=== PATIENT | female | born 1970 | race Caucasian/White ===

== ENCOUNTER 2017-03-08 22:51 | Inpatient (IN) | payer OTHER ==
[~2017-03-08] VITALS: Ht 154.9 cm; Wt 90.7 kg
[~2017-03-08 22:51] MED LIST: ASPIRIN325 PO; GLUCOPHAGE1000 MG PO; GLUCOTROL5 MG PO; LEVEMIR SUBQ; NOVOLOG100 UNIT/1 SUBQ; PRINIVIL5 MG PO; TRICOR145 MG PO
[2017-03-08 22:54] VITALS: BP 126/69
[2017-03-08] MEDS ORDERED: ONGLYZA5 MG PO (23:10)
[2017-03-08] MEDS ORDERED: METFORMIN HCL500 MG PO (23:10)
[2017-03-08] MEDS ORDERED: LOVASTATIN 20 M20 MG PO (23:11)
[2017-03-08] MEDS ORDERED: LIPITOR80 MG PO (23:11)
[2017-03-08] MEDS ORDERED: GABAPENTIN 100100 MG PO (23:11)
[2017-03-08] MEDS ORDERED: LISINOPRIL40 MG PO (23:11)
[2017-03-08] MEDS ORDERED: DIPHENHIST50 MG (23:12)
[2017-03-08] MEDS ORDERED: COMPAZINE10 MG PO (23:12)
[2017-03-08] MEDS ORDERED: FLEXERIL PO (23:12)
[2017-03-08] MEDS ORDERED: CLEOCIN HCL300 MG PO (23:13)
[2017-03-08] MEDS ORDERED: ONDANSETRON HCL4 M2 PO (23:13)
[2017-03-08 23:24] LABS: ABSOLUTE BASOPHILS 0.1 thou/uL (0.0-0.2); ABSOLUTE EOSINOPHILS 0.1 thou/uL (0.0-0.7); ABSOLUTE LYMPHOCYTES 1.8 thou/uL (0.8-5.3); ABSOLUTE MONOCYTES 0.8 thou/uL (0.0-1.2); ABSOLUTE NEUTROPHILS 9.8 thou/uL (1.6-8.1); BASOPHILS 0.6 %; HEMATOCRIT 39.4 % (37.0-47.0); HEMOGLOBIN 12.5 gm/dL (12.0-15.0); LYMPHOCYTES 14.4 %; MCH 26.8 pg (26.0-34.0); MCHC 31.8 g/dL (28.0-37.0); MCV 84.3 fL (80.0-100.0); MONOCYTES 6.3 %; MPV 9.6 fl. (7.2-11.1); NUCLEATED RBCS 0 /100WBC; PLATELET COUNT* 265 thou/uL (150-400); POLYS 77.7 %; RBC 4.67 mil/uL (4.20-5.00); RDW-CV 14.2 % (10.5-14.5); WBC 12.6 thou/uL (4.0-11.0)
[2017-03-08 23:44] LABS: INR 1.1; PROTIME 10.3 Seconds (9.20-11.50)
[2017-03-08 23:52] LABS: ANION GAP 13 mmol/L (7-16); BUN 17 mg/dL (7-18); CALCIUM 9.2 mg/dL (8.5-10.1); CHLORIDE 101 mmol/L (98-107); CO2 21 mmol/L (21-32); CREATININE 0.9 mg/dL (0.6-1.3); GLUCOSE 184 mg/dL (70-99); POTASSIUM 3.9 mmol/L (3.5-5.1); SODIUM 135 mmol/L (136-145)
[2017-03-08 23:56] LABS: ALBUMIN 4.1 g/dL (3.4-5.0); ALKALINE PHOSPHATASE 70 U/L (46-116); NT-PRO BRAIN NAT PEPTIDE 61 pg/mL (<300); SALICYLATE < 2.8 mg/dL (2.8-20.0); SGOT 21 U/L (15-37); SGPT 31 U/L (30-65); TOTAL BILIRUBIN 0.6 mg/dL (<0.1-1.0); TOTAL PROTEIN 7.4 g/dL (6.4-8.2); TROPONIN-I LEVEL <0.06 ng/mL (<0.06)
[2017-03-08 23:58] LABS: ACETAMINOPHEN < 2 ug/mL (10-30)
[2017-03-09] VITALS (12 sets, daily range): BP systolic 122–171; BP diastolic 60–95
[2017-03-09 01:16] LABS: URINE BLOOD NEGATIVE (Negative); URINE CLARITY CLEAR; URINE COLOR YELLOW; URINE GLUCOSE-RANDOM NEGATIVE (Negative); URINE KETONES 1+ (Negative); URINE LEUKOCYTES-REFLEX NEGATIVE (Negative); URINE NITRITE-REFLEX NEGATIVE (Negative); URINE PROTEIN TRACE (Negative); URINE SPECIFIC GRAVITY >= 1.030 (1.005-1.030); URINE UROBILINOGEN 0.2 E.U./dl (0.2-1.0)
[2017-03-09 01:19] LABS: URINE BILIRUBIN 1+ (Negative)
[2017-03-09 01:21] LABS: ICTOTEST (BILI CONFIRMATORY) Positive (Negative)
[2017-03-09 01:22] LABS: AMP/METHAMP Negative (Negative); BARBITURATES Negative (Negative); BENZODIAZEPINES Negative (Negative); COCAINE Negative (Negative); METHADONE Negative (Negative); OPIATES POSITIVE (Negative); PCP Negative (Negative); THC Negative (Negative)
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
--- NOTE | 2017-03-09 06:30 | NUR ---
PATIENT REMAINS ON RESTRAINTS. STILL ATTEMPTING TO CLIMB OUT OF BED, SCRATCHING SELF AND PURSUES TO TAKE OFF MEDICAL EQUIPMENT. ON ROOM AIR STATS 97 O2. HR 120'S. GAVE ATIVAN TO HELP WITH RESTLESSNESS. PT STILL NOT ABLE TO FORMULATE WORDS. MAKES SOUNDS ONLY. WILL CONTINUE TO MONITOR CLOSELY. FALL PRECAUTIONS IN PLACE.
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
--- NOTE | 2017-03-09 11:51 | EKG ---
[place] [address] ELECTROCARDIOGRAM REPORT Name: DAYA GARVIN Room: [address] ADM IN ..#: [id number] Admission: 03/09/17 Attend Phys: Yuki Hauser Discharge: Date of : 68 Report #: [id number] THIS REPORT FOR: //name// [facility] Test Date: 2017-03-08 Test Time: 23:46:27 Pat Name: DAYA AGRVIN Department: Room: [facility] Gender: F Ice Guard Tester: GISELL Vera : 1970 Requested By: Sara Coley Order Number: [id number] MD: Augie Burr Measurements Intervals [place] Rate: 109 P: 43 KS: 155 QRS: -15 QRSD: 85 T: 34 QT: 361 QTc: 487 Interpretive Statements Sinus tachycardia Low voltage, precordial leads Left ventricular hypertrophy Anterior Q waves, possibly due to LVH Compared to ECG 11/02/2016 15:11:54 LEFT VENTRICULAR HYPERTROPHY now noted Electronically Signed On 03-09-2017 11:51:30 FITTER TACKER by Augie Burr [email or web address] <ELECTRONICALLY SIGNED> By: Augie Burr MD, FACC 03/09/17 1151 [id number] Augie Burr MD, [facility] /EPI
--- NOTE | 2017-03-09 13:43 | NUR ---
ATTEMPTED TO GET [facility] THEY STATE THERE IS NO ONE WITH HER NAME IN THEIR SYSTEM. LAST FOUR OF SOCIAL GIVEN, STILL NO RESULTS. ATTEMPTED TO CALL PATIENT'S MOTHER TO SEE IF SHE WOULD BE UNDER ANOTHER NAME, BUT THERE WAS NO ANSWER.
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
[2017-03-10] VITALS (11 sets, daily range): BP systolic 125–162; BP diastolic 74–97
[2017-03-10 04:51] LABS: ABSOLUTE BASOPHILS 0.1 thou/uL (0.0-0.2); ABSOLUTE EOSINOPHILS 0.3 thou/uL (0.0-0.7); ABSOLUTE LYMPHOCYTES 1.9 thou/uL (0.8-5.3); ABSOLUTE MONOCYTES 0.5 thou/uL (0.0-1.2); ABSOLUTE NEUTROPHILS 4.7 thou/uL (1.6-8.1); BASOPHILS 1.1 %; EOSINOPHILS 3.6 %; HEMATOCRIT 34.8 % (37.0-47.0); HEMOGLOBIN 11.4 gm/dL (12.0-15.0); LYMPHOCYTES 25.1 %; MCHC 32.7 g/dL (28.0-37.0); MCV 82.4 fL (80.0-100.0); MONOCYTES 6.9 %; NUCLEATED RBCS 0 /100WBC; PLATELET COUNT* 221 thou/uL (150-400); POLYS 63.3 %; RBC 4.22 mil/uL (4.20-5.00); RDW-CV 13.8 % (10.5-14.5); WBC 7.4 thou/uL (4.0-11.0)
[2017-03-10 05:12] LABS: CALCIUM 8.1 mg/dL (8.5-10.1); CREATININE 0.7 mg/dL (0.6-1.3); POTASSIUM 3.7 mmol/L (3.5-5.1)
--- NOTE | 2017-03-10 05:24 | NUR ---
PATIENT CURRENTLY WITH SITTER IN ROOM. SLOWLY PROGRESSING TOWARDS GOALS. PT ORIENT TO PLACE, SELF, AGE. CONTINUES TO MUMBLE WITH EYES CLOSED. DOES FOLLOW COMMANDS WHEN ASKED TO OPEN EYES AND SQUEEZE HANDS. URINE OUTPUT ADEQUATE. ON ROOM AIR O2 98. TACHYCARDIC. RR WNL. WILL CONTINUE TO MONITOR CLOSELY. SPOKE WITH SON LAST NIGHT UPDATED ON CURRENT PLAN OF CARE AND SITUATION, VOICED NO FURTHER CONCERNS OR QUESTIONS. SON WILL BE COMING BY THIS MORNING. FALL PRECAUTIONS IN PLACE.
--- NOTE | 2017-03-10 08:22 | NUR ---
ASSUME CARE OF PT RN/SITTER. PT RESTING IN BED,CALM AND COOPERATIVE. RESTRAINTS REMOVED. PT DROWSY BUT AROUSABLE TO VOICE AND TOUCH. VSS,AIRWAY PATENT. WILL CONTINUE TO MONITOR
--- NOTE | 2017-03-10 09:40 | NUR ---
PT AWAKE AND CONVERSING WITH STAFF. PT INSISTS SHE DID NOT TRY TO KILL HERLSELF AND REPORTS SHE TOOK "TWO BENADRYL AND A COUPLE PILLS CALED SPEED UP". PT SLEEPY. ABLE TO DRINK BUT FALLS ASLEEP WHILE EATING.WILL KEEP NPO EXCEPT FLUIDS FOR SAFETY
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
--- NOTE | 2017-03-10 18:16 | NUR ---
PT RESTING IN BED THROUGHOUT SHIFT. SITTER REMAINS AT BS. PT UP TO CHAIR THIS AFTERNOON. PT SLEEPY AND FALLING ASLEEP DURING CONVERSATION AND WHILE EATING. IVF INFUSING. PT REMAINS STACH ON MONITOR. DENIES SI
--- NOTE | 2017-03-10 18:49 | NUR ---
ASSUME CARE OF PT THIS AFTERNOON. PT RESTING IN BED AND REPOSITIONED FREQUENTLY.DIALYSIS THIS EVENING. TOLERATING WELL
[2017-03-11] VITALS: BP 148/79
--- NOTE | 2017-03-11 03:47 | NUR ---
PT TRANSFER UP FROM ICU TO RM 220 AT 2215. PT 1:1 FOR SUICIDAL IDEATION. FORBES WITH CLEAR YELLOW. NS AT 100MLS/HR. TELEMETRY SHOWS ST. PT DROWSEY EASILY AROUSED. ORIENTED TO SELF, PLACE AND SITUATION. WILL CONTINUE TO MONITOR.
[2017-03-11 04:09] VITALS: BP 137/83
[2017-03-11 05:35] LABS: ABSOLUTE BASOPHILS 0.1 thou/uL (0.0-0.2); ABSOLUTE EOSINOPHILS 0.2 thou/uL (0.0-0.7); ABSOLUTE LYMPHOCYTES 1.5 thou/uL (0.8-5.3); ABSOLUTE MONOCYTES 0.5 thou/uL (0.0-1.2); ABSOLUTE NEUTROPHILS 4.3 thou/uL (1.6-8.1); EOSINOPHILS 3.4 %; HEMOGLOBIN 11.2 gm/dL (12.0-15.0); LYMPHOCYTES 23.2 %; MCH 26.7 pg (26.0-34.0); MCHC 32.9 g/dL (28.0-37.0); MCV 81.2 fL (80.0-100.0); MONOCYTES 6.8 %; MPV 9.2 fl. (7.2-11.1); NUCLEATED RBCS 0 /100WBC; PLATELET COUNT* 214 thou/uL (150-400); POLYS 65.6 %; RBC 4.19 mil/uL (4.20-5.00); RDW-CV 13.8 % (10.5-14.5); WBC 6.6 thou/uL (4.0-11.0)
[2017-03-11 05:46] LABS: ALBUMIN 3.1 g/dL (3.4-5.0); CALCIUM 7.9 mg/dL (8.5-10.1); CREATININE 0.6 mg/dL (0.6-1.3); POTASSIUM 3.8 mmol/L (3.5-5.1); TOTAL BILIRUBIN 0.3 mg/dL (<0.1-1.0); TOTAL PROTEIN 5.7 g/dL (6.4-8.2)
[2017-03-11 08:00] VITALS: BP 125/81
[2017-03-11 12:18] VITALS: BP 151/82
[2017-03-11 16:08] VITALS: BP 144/74
--- NOTE | 2017-03-11 18:53 | NUR ---
ASSUMED PT CARE AT 0730, FULL ASSESMENT DONE CHARTED. PT ORIENTED X4, IS A LITTLE FORGETFUL. PT DROWSY, BUT EASILY AROUSABLE.STATES SHE DOES NOT REMEMBER WHAT HAPPENED TO BRING HER TO HOSPITAL BUT HAS BEEN TOLD THAT SHE TOOK TOO MUCH OF SOME MEDICINE. PT DENIES SI AT THIS TIME. SHE ASKES WHEN SHE WILL BE ABLE TO LEAVE, PT EDUCATED THAT THE PSYC STILL NEEDS TO SEE HER. PT AGREEABLE TO THIS AND VERBALIZED UNDERSTANDING. 1:1 SITTER REMAINS IN PTS ROOM. PT UP LEIDY GOODMAN REMOVED THIS AM, PT URINATING ON OWN. FLUIDS DC'D. MEDS GIVEN PER APR. PTS MOM IN TO VISIT THIS AFTERNOON, TOOK PTS BELONINGS FROM [facility]. PT PROGRESSING TOWARD GOALS. FALL PRECAUTIONS IN PLACE. PT CALLS APPROPRIALTY FOR HELP. WILL CONTINUE TO MONITOR.
[2017-03-11 20:00] VITALS: BP 136/81
[2017-03-12] VITALS (8 sets, daily range): BP systolic 136–163; BP diastolic 78–95
--- NOTE | 2017-03-12 04:53 | NUR ---
ASSUMED CARE OF PATIENT AT [address] ON THE MONITOR LOW 100'S TO 110'S O2 SAT MAINTAINED ON RA CONTINUES TO BE UP AD SANJAY 1:1 PRESENT FOR SI SAFETY PHYSICIAN COLLABORATION CONTACT MADE AT [facility] 1381 REGARDING IV ACCESS ORDERS OBTAINED ORDER MAY LEAVE IV OUT TX EFFECTIVE FOR SX MANAGEMENT THE PATIENT IV ACCESSS SAFETY INTERVENTIONS CONTINUE BED LOWERED WHEELS LOCKED CALL LIGHT IN REACH SIDE RAILS UP REPORT TO BE GIVEN TO RAMILA JERNIGAN
--- NOTE | 2017-03-12 08:00 | NUR ---
pT RESTING IN BED, APPEARS ALERT O X 4, DENIES CHEST PAIN, SOB, PAIN OR DISCOMFORT, IS CURRENTLY ON 02/14 CONSTAMT OBSERVATION FOR SI PRECAUTIONS. PT DENIES ANT THOUGHTS VOF SUICISAL IDEATION, PT STATES IS , WOULD LIKE TO TRANSFER TO [facility]
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
[2017-03-12] MEDS ORDERED: AZITHROMYCIN 2250 MG PO (11:41)
[2017-03-12] MEDS ORDERED: LOVASTATIN 20 M20 MG PO (12:10)
--- NOTE | 2017-03-16 19:06 | EEG ---
[address] [address] EEG STUDY REPORT Name: MELVINCharlyDAYA B Room: [address]#: [id number] Admission: 03/09/17 Attend Phys: Yuki Hauser Discharge: 03/12/17 Date of : 68 Report #: [id number] THIS REPORT FOR: //name// CC: Alma Shannon DATE OF SERVICE: 03/09/2017 INDICATION FOR STUDY: This patient is being evaluated for altered mental status. INTERPRETATION: EEG was done by placing the electrodes by standard 10-20 system of electrode placement. Both referential and sequential montages were used for recording. Background activity in this patient's EEG is about 8 Hz and 20 microvolt. It is intermixed with theta range slowing on both sides. The patient went to sleep that is associated with bilaterally symmetrical sleep spindle and vertex sharp waves. Photic stimulation is unremarkable. Throughout the record, no active epileptiform activity was noticed. IMPRESSION: This patient's electroencephalogram is moderately abnormal because it is intermixed with theta range slowing on both sides. That is a nonspecific finding, which can occur with the effect of psychotropic medication, encephalopathy, etc. Clinical correlation is recommended. Thank you very much for this referral. <ELECTRONICALLY SIGNED> By: Bubba Birch MD 03/16/17 1906 1929 MD dilma Calzada
--- NOTE | 2017-03-16 19:06 | CON ---
[facility] [address] [place] [address] CONSULTATION Name: DAYA GARVIN Room: [address] IN .R.#: [id number] Admission: 03/09/17 Attend Phys: Yuki Hauser Discharge: 03/12/17 Date of : 68 Report #: [id number] THIS REPORT FOR: //name// CC: Alma Shannon DATE OF SERVICE: 03/09/2017 HISTORY OF PRESENT ILLNESS: This is a 46-year-old female patient who was evaluated by me because of altered mental status. The patient is not able to provide any history. She is mostly unresponsive. She will occasionally try to follow simple command. Mother indicated the patient was depressed. This is because of her pending divorce from 18 years of marriage. She has been depressed even before, but this time, she does not know whether the patient took too much medication or not because she was with her son and sons are not available. In any event, this patient had altered mental status and she was brought and was admitted. She is on multiple psychiatric medications and it is not clear if she overdosed on any one of them or more than one of them. REVIEW OF SYSTEMS: Indicate apparently there was some notice of speech difficulty at one time, but that was yesterday. It is not clear what medicines she took. She usually goes to [facility] for her care. Those records are not available. She has taken lisinopril and metformin and I suspect she may have diabetes and hypertension, but family indicates that her blood sugar was normal. Fourteen-point review of system was carried out mainly from the record. The patient indicates that she is a diabetic, she is hypertensive. This was mainly 14-point review of systems. PAST MEDICAL HISTORY: Negative for epilepsy. SOCIAL HISTORY: She does not smoke or drink any alcohol. FAMILY HISTORY: Negative for epilepsy. PHYSICAL EXAMINATION: Indicate she is very sleepy. She wakes up for a short period of time. When she wakes up she very rarely tries to ____. There is no meningeal sign. I could not look at the patient's fundus. Reflexes are difficult to elicit. Cardiac examinations appear mostly noncontributory. Respiratory examination as ____. IMPRESSION: We will try to get some further workup in this patient to evaluate this further. We will start with an MRI and EEG. She had a history of Meniere's disease in the past and the family was concerned with it. I told her the need of an ENT consult, while that will be done as an outpatient, I will try to get up some workup done to look [place] [address] CONSULTATION Name: DAYA GARVIN Room: [address] IN ..#: [id number] Admission: 03/09/17 Attend Phys: Yuki Hauser Discharge: 03/12/17 Date of : 68 Report #: [id number] RECOMMENDATIONS: 1. MRI of the brain. 2. EEG. 3. These are the workup we need and once we get that, we will leave some further recommendation depending upon this workup. Thank you very much for this referral. If you have any question, please feel free to contact me. <ELECTRONICALLY SIGNED> By: Bubba Birch MD 03/16/17 1906 1245 18Bubba Birch MD /nt
== END 2017-03-12 14:12 | disposition home or self-care (01) | DRG 917 ==
LOC: M.ERS 22:51 → M.TBA-ER 03-09 01:27 → M.ICU 03-09 01:27 → M.2W 03-10 22:15
PROVIDERS: Emergency Medicine; Internal Medicine; ADMIT Internal Medicine
PROC: 4A00X4Z Measurement of Central Nervous Electrical Activity, External Approach (ICD-10-PCS; principal; 2017-03-09)
DX: T45.0X1A Poisoning by antiallergic and antiemetic drugs, accidental (unintentional), initial encounter (principal); J69.0 Pneumonitis due to inhalation of food and vomit; G93.40 Encephalopathy, unspecified; R65.10 Systemic inflammatory response syndrome (SIRS) of non-infectious origin without acute organ dysfunction; T40.601A Poisoning by unspecified narcotics, accidental (unintentional), initial encounter; R41.0 Disorientation, unspecified; F31.9 Bipolar disorder, unspecified; E11.9 Type 2 diabetes mellitus without complications; E78.00 Pure hypercholesterolemia, unspecified; G43.909 Migraine, unspecified, not intractable, without status migrainosus; Z79.84 Long term (current) use of oral hypoglycemic drugs; Z79.899 Other long term (current) drug therapy; Z88.0 Allergy status to penicillin; Z88.2 Allergy status to sulfonamides; Z88.1 Allergy status to other antibiotic agents; Z91.041 Radiographic dye allergy status; Z28.21 Immunization not carried out because of patient refusal